=== PATIENT | female | born 1985 | race Two or more races ===

== ENCOUNTER 2016-10-07 21:16 | Emergency (ER) | payer MEDICAID ==
[2016-10-07 21:33] VITALS: BP 117/75
[2016-10-08 01:36] LABS: BASOPHIL % 0.3 % (0-2); PLATELET COUNT 239 x10^3mcL (130-400); RED CELL DISTRIBUTION WIDTH 13.6 % (11.5-14.5)
[2016-10-08 01:40] LABS: microscopic required? NO
[2016-10-08 01:55] LABS: UA SPECIFIC GRAVITY <=1.005 (1.005-1.035); urine erythrocyte NEGATIVE (NEGATIVE)
== END 2016-10-08 03:18 | disposition home or self-care (01) ==
LOC: ED 21:16
PROVIDERS: Emergency Medicine
DX: O20.0 Threatened abortion (principal); Z79.899 Other long term (current) drug therapy; Z88.5 Allergy status to narcotic agent; Z3A.14 14 weeks gestation of pregnancy

== ENCOUNTER 2019-12-15 15:17 | Emergency (ER) | payer OTHER, SELFPAY ==
[~2019-12-15] VITALS: Ht 154.9 cm; Wt 79.4 kg
[2019-12-15 15:21] VITALS: BP 119/73; Ht 154.9 cm; Wt 79.4 kg
== END 2019-12-15 16:43 | disposition home or self-care (01) ==
LOC: ED 15:17
DX: B34.9 Viral infection, unspecified (principal); Z20.828 Contact with and (suspected) exposure to other viral communicable diseases; Z88.5 Allergy status to narcotic agent
CPT/HCPCS: U0003-CS